=== PATIENT | female | born 1975 | race Caucasian/White ===

== ENCOUNTER 2017-07-09 20:03 | Emergency (ER) | payer MEDICAID ==
[2017-07-09 21:04] LABS: UA SPECIFIC GRAVITY <=1.005 (1.005-1.035); microscopic required? YES; urine erythrocyte 1+ (NEGATIVE)
[2017-07-09 21:31] LABS: BASOPHIL % 0.4 % (0-2)
[2017-07-09 21:34] LABS: PLATELET COUNT 475 x10^3mcL (130-400)
[2017-07-09 21:36] LABS: CALCIUM 9.3 mg/dL (8.5-10.1); CARBON DIOXIDE 27.4 mmol/L (21-32); CHLORIDE SERUM 102 mmol/L (98-107); CREATININE SERUM 0.5 mg/dL (0.6-1.0); GFR1 > 60 mL/min; GLUCOSE SERUM 191 mg/dL (74-106); POTASSIUM SERUM 3.7 mmol/L (3.5-5.1); SODIUM SERUM 138 mmol/L (136-145)
[2017-07-09 21:41] LABS: ALKALINE PHOSPHATASE 84 U/L (46-116); ALT/SGPT 12 U/L (14-59); AST/SGOT 12 U/L (15-37); BILIRUBIN TOTAL 0.22 mg/dL (0.20-1.00); TOTAL PROTEIN, SERUM 8.1 g/dL (6.4-8.2)
[2017-07-09 21:43] LABS: ALBUMIN 3.1 g/dL (3.4-5.0)
[2017-07-09 23:38] VITALS: BP 133/89
== END 2017-07-09 23:38 | disposition home or self-care (01) ==
LOC: ED 20:03
PROVIDERS: Emergency Medicine
DX: R21 Rash and other nonspecific skin eruption (principal); E11.9 Type 2 diabetes mellitus without complications
CPT/HCPCS: 36415; J7512

== ENCOUNTER 2017-07-12 18:34 | Emergency (ER) | payer MEDICAID ==
[~2017-07-12] VITALS: Ht 160 cm; Wt 56.2 kg
[2017-07-12 18:44] VITALS: BP 120/55; Ht 160 cm; Wt 56.2 kg
== END 2017-07-12 19:44 | disposition left against medical advice (07) ==
LOC: ED 18:34
DX: Z53.21 Procedure and treatment not carried out due to patient leaving prior to being seen by health care provider (principal)

== ENCOUNTER 2017-07-12 19:57 | Emergency (ER) | payer MEDICAID ==
[~2017-07-12] VITALS: Ht 157.5 cm; Wt 56.7 kg
[2017-07-12 20:41] VITALS: Ht 157.5 cm; Wt 56.7 kg
[2017-07-12 22:28] LABS: BASOPHIL % 0.2 % (0-2); RED CELL DISTRIBUTION WIDTH 13.9 % (11.5-14.5)
[2017-07-12 22:32] LABS: PLATELET COUNT 527 x10^3mcL (130-400)
[2017-07-12 22:38] LABS: CALCIUM 9.4 mg/dL (8.5-10.1); CARBON DIOXIDE 27.4 mmol/L (21-32); CHLORIDE SERUM 100 mmol/L (98-107); CREATININE SERUM 0.6 mg/dL (0.6-1.0); GFR1 > 60 mL/min; GLUCOSE SERUM 292 mg/dL (74-106); POTASSIUM SERUM 3.9 mmol/L (3.5-5.1); SODIUM SERUM 135 mmol/L (136-145)
[2017-07-12 22:43] LABS: ALKALINE PHOSPHATASE 92 U/L (46-116); ALT/SGPT 12 U/L (14-59); AST/SGOT 6 U/L (15-37); BILIRUBIN TOTAL 0.2 mg/dL (0.20-1.00); TOTAL PROTEIN, SERUM 7.9 g/dL (6.4-8.2)
[2017-07-12 22:44] LABS: ALBUMIN 3.3 g/dL (3.4-5.0)
[2017-07-13 02:23] VITALS: BP 113/82
== END 2017-07-13 02:23 | disposition home or self-care (01) ==
LOC: ED 19:57
PROVIDERS: Emergency Medicine
DX: R21 Rash and other nonspecific skin eruption (principal); D47.3 Essential (hemorrhagic) thrombocythemia; E11.65 Type 2 diabetes mellitus with hyperglycemia
CPT/HCPCS: 36415

== ENCOUNTER 2017-07-15 19:11 | Emergency (ER) | payer MEDICAID ==
[~2017-07-15] VITALS: Ht 157.5 cm; Wt 54.0 kg
[2017-07-15 19:29] VITALS: Ht 157.5 cm; Wt 54.0 kg
[2017-07-15 21:45] VITALS: BP 131/82
== END 2017-07-15 21:45 | disposition home or self-care (01) ==
LOC: ED 19:11
DX: I77.6 Arteritis, unspecified (principal)
CPT/HCPCS: J7512